=== PATIENT | female | born 1965 | race Caucasian/White ===

== ENCOUNTER → 2024-03-03 16:50 | Outpatient (REF) | payer BC, SELFPAY | LOC: WDC 16:50 | PROVIDERS: ATTENDING PHYSICIAN Family Medicine | DX: Z12.31 Encounter for screening mammogram for malignant neoplasm of breast (principal) | CPT/HCPCS: 77063; 77067 ==

== ENCOUNTER → 2024-03-16 07:02 | Outpatient (REF) | payer BC, SELFPAY | LOC: RAD 07:02 | PROVIDERS: ATTENDING PHYSICIAN Student in an Organized Health Care Education/Training Program; FAMILY PHYSICIAN Family Medicine | DX: M25.571 Pain in right ankle and joints of right foot (principal) | CPT/HCPCS: 73700 ==

== ENCOUNTER 2024-04-29 14:00 | Emergency (ER) | payer BC, SELFPAY ==
[2024-04-29] VITALS (8 sets, daily range): BP systolic 130–166; BP diastolic 94–112; BMI 27.3
--- NOTE | 2024-04-29 14:05 | ED.GENMED ---
History of Present Illness
General
Chief Complaint: Fainting Sensation
Time Seen by Provider: 04/29/24 14:05
History of Present Illness
History of Present Illness:
HPI: Patient came in by ambulance. Left her AA meeting (says she drank a little this am), got into her hot car, felt a marley in back center of neck to head, then nearly passed out and struggled to get to a parking lot of a restaurant. Currently she
is improved however she feels an abnormality to the left eye. She has not double vision until today.
EXAM:
GENERAL: Well appearing in no distress
HEENT: Moist oral mucosa
CARDIOVASCULAR: No murmurs, normal heart rate, regular rhythm, No chest wall tenderness
PULMONARY: No respiratory distress, breath sounds are clear and equal
ABDOMEN: Soft with no peritoneal signs, no tenderness
NEUROLOGIC: Excellent strength all extremities, no coordination deficits, left 6th nerve palsy, slightly impaired finger-nose on the right
PSYCHIATRIC: Appropriate mental status, normal insight and judgement
EXTREMITIES: Nontender, no edema, deformity at right ankle
SKIN: No rash, no lesions
TIME OF INITIAL ENCOUNTER: 2:30 PM
NUMBER AND COMPLEXITY OF PROBLEMS ADDRESSED AT THE ENCOUNTER
� Chronic conditions affecting care: High blood pressure, colitis, GERD, anemia
� Acute Exacerbation and/or Progression of Chronic Illness: This is an acute problem
� Differential Diagnosis includes: Heat exhaustion, alcohol intoxication unlikely, acute cranial nerve palsy
AMOUNT AND/OR COMPLEXITY OF DATA TO BE REVIEWED AND ANALYZED
� I performed an independent evaluation of and my interpretation is:
EKG: Sinus 92, left axis deviation
CT: I personally viewed CT imaging which shows subarachnoid hemorrhage
X-rays:
Laboratory Studies: Alcohol 11, potassium 3.1, bicarb 15, borderline troponin 0.03
Other:
� Review of other/old records: Potassium from 4 days ago was 5.0
� Clinical information was obtained by an independent historian: Spoke to friend at bedside
� Prescriptions/Medications Considered but not given:
� Further testing considered but not performed:
RISK OF COMPLICATIONS AND/OR MORBIDITY OR MORTALITY OF PATIENT MANAGEMENT
� Social determinants of health affecting care: Lives at home,
� Discussion with other providers: Discussed case with radiology as well as neurology, Dr. Ziegler imaging shows subarachnoid hemorrhage at the basilar cistern
� Escalation of care including admission/observation vs risk of discharge considered: Call placed to [place] for transfer at 4 PM. I spoke to neurosurgery at [facility] neuro ICU and will plan to fly her to get her
there as soon as possible. Neurosurgeon recommends against anything other than blood pressure control. I have given labetalol. BP remained elevated and she was switched to Cardene. At approximately 5 PM, the patient had a seizure with urinary
incontinence and became apneic and bradycardic. Decision was made to be emergently intubate the patient. This was done without difficulty. She was given Keppra. Repeat CT shows worsening bleed. As of 5:30 PM, she is taken by air to [facility]. I
updated [place] several times and spoke to the neurosurgeon.
Past History
Past History
ED Past Medical History: HTN and Other (Migraines, colitis); Negative IDDM
ED Past Surgical History:
Social History
Tobacco: Non-smoker
Alcohol: Daily (Glass of Wine)
Personal:
Living: with family
Employment: Employed
Family History
Family History: Other (Noncontributory)
Phy Exam
Physical Exam
Physical Exam:
See HPI
Course
Orders/Labs/Results
Orders:
Orders
04/29/24 14:09
ECG [Electrocardiogram (*1)] Urgent
Reason for Study: Vertigo / Dizzy
EKG- Treatment ONCE
04/29/24 14:11
Alcohol Urgent
Complete Blood Count/With Diff Urgent
Comprehensive Metabolic Panel Urgent
04/29/24 14:31
Add On- LAB Urgent
Tests Added?: alcohol
04/29/24 14:35
CT Head W/o Iv Contrast Urgent
Comment:
Reason For Exam: acute left 6th nerve palsy
04/29/24 14:46
CT Head & Neck Angio W/wo IV Urgent
Comment:
Reason For Exam: Neck pain, diploipa, ?vert dissection or basilar
04/29/24 14:49
0.9% Sodium Chloride 1000 ml [Nss] 1,000 ml IV BOLUS
04/29/24 14:55
Troponin I Urgent
04/29/24 16:06
Labetalol HCl [Trandate] 10 mg IV NOW STA
04/29/24 16:16
Potassium Chloride [KCl] 40 meq 0.9% Sodium Chloride 250 ml [Nss] 250 ml IV NOW
04/29/24 16:32
Nicardipine 40 mg/200 ml [Cardene] 40 mg in 200 ml .ROUTE .STK-MED
04/29/24 16:43
Lorazepam [Ativan] 2 mg .ROUTE .STK-MED ONE
04/29/24 16:45
Nicardipine 40 mg/200 ml [Cardene] 40 mg in 200 ml IV PER PROTOCOL
04/29/24 16:49
Propofol 1,000,000 Mcg/100 ml [Diprivan] 1,000,000 mcg in 100 ml .ROUTE .STK-MED
04/29/24 16:51
Levetiracetam Injectable [Keppra] 1,000 mg IV NOW STA
04/29/24 16:55
Propofol [Diprivan] 20 ml .ROUTE .STK-MED
04/29/24 16:57
CT Head W/o Iv Contrast Urgent
Comment:
Reason For Exam: unresponsive seizure; requested by [facility]
04/29/24 17:00
Propofol 1,000,000 Mcg/100 ml [Diprivan] 1,000,000 mcg in 100 ml IV PER PROTOCOL
04/29/24 17:06
Cr Chest Portable [CR Chest Portable - 1 View] Stat
Comment:
Reason For Exam: post intubation
Reason Study Needs to be Portable: Patient Unstable
04/29/24 17:19
Midazolam HCl [Versed] 5 mg .ROUTE .STK-MED ONE
04/29/24 17:23
Midazolam HCl [Versed] 5 mg IV NOW STA
Abnormal Lab Results
04/29/24
14:11
RBC 3.75 L 10^6/uL
(4.20-5.40)
Hgb 9.6 L g/dL
(12.0-16.0)
Hct 29.2 L %
(37.0-47.0)
MCV 77.9 L fL
(81.0-99.0)
MCH 25.6 L pg
(27.0-31.0)
MCHC 32.9 L g/dL
(33.0-37.0)
RDW 18.4 H %
(11.5-14.5)
Neutrophils % 41.0 L %
(42.2-75.2)
Potassium 3.1 L mmol/L
(3.5-5.1)
Carbon Dioxide 15 L mmol/L
(22-30)
BUN 6 L mg/dl
(7-17)
Creatinine 0.5 L mg/dL
(0.6-1.0)
Glucose 111 H mg/dl
(70-99)
04/29/24 14:11
04/29/24 14:11
Vital Signs
Initial and Last Documented VS:
Initial Vital Signs
Temp Pulse Resp BP Pulse Ox
98.3 F 93 20 144/98 96
04/29/24 14:03 04/29/24 14:03 04/29/24 14:03 04/29/24 14:03 04/29/24 14:03
Last Documented Vital Signs
Temp Pulse Resp BP Pulse Ox
98.3 F 92 16 130/94 100
04/29/24 14:03 04/29/24 17:10 04/29/24 17:10 04/29/24 17:10 04/29/24 17:10
Procedures
Moderate Sedation
ASA Risk Score: Class III
Chart and allergies reviewed: Yes
Consent for anesthesia obtained: No
Time out completed (validating right patient & procedure): Yes
History of difficult intubation: Not applicable
Airway free of obstruction: Yes
Patient has a gag reflex: Yes
Patient is able to open mouth: Yes
Patient has no dentures: Yes
Patient has no loose teeth: Yes
Medication administered by Provider during Moderate Sedation: Other
Intubations
Procedure completed by: Vt, Dr. Farley
Method of Intubation: glidescope
Tube size (cm): 7.5
Placement confirmed by: capnography
Breath sounds after intubation: equal
Intubation complications: no complications
Additional information:
The patient was given 20 mg of etomidate and 100 mg of succinylcholine for intubation.
*Critical Care Note
Total Time (30-74mins, 75-104mins- exclusive of procedures): 70min
comment:
The patient is found to have a nontraumatic subarachnoid hemorrhage. I emergently discussed case with neurosurgery at [facility] and they accepted their service to the neuro ICU. The patient's only finding on neurologic examination is a 6th nerve palsy
on the left side. She was closely monitored for any neurologic changes.
ED Attending Note
-
Portions of this chart may have been created with voice recognition software.� Occasional wrong word or��sound alike� substitutions may have occurred due to the inherent limitations of voice recognition software.
Discharge Plan
Departure
Patient Disposition: Acute Care Hospital
Date of Disposition: 04/29/24
Time of Disposition: 16:05
Patient with high blood pressure during this ER visit?: Yes
Discharge Problem:
Subarachnoid hemorrhage
Prescriptions:
No Action
Excedrin Migraine 1 TABLET tablet
2 tab PO DAILY
B Healthy
1 dose PO BID
meloxicam 15 mg Tablet
15 mg PO DAILY
omeprazole 40 mg Capsule,Delayed Release(Dr/Ec)
40 mg PO DAILY
royal jelly 500 mg Capsule
2,000 mg PO BID
Maximum Collagen Powder
1 dose PO DAILY
Pineapple Extract
1,500 mg PO BID
Corrigan Iron
1 dose PO DAILY
Vitamin C Power Pack
1,200 mg PO DAILY
mirtazapine 15 mg Tablet
15 mg PO DAILY
Referrals:
Yovanny Anderson MD [Family Provider] -
Hospital Transfer
Other hospital: [facility]
I certify that the patient requires transfer: Yes
Discussed case with accepting physician: Neurosurgeon at [facility] Dr. Campa (sp?)
Reason for transfer: higher level of care
Interventions
Interventions:
*Risk Screen - Suicide Last Done: 04/29/24 14:07
*General Assessment Last Done: 04/29/24 14:07
*Neglect/Abuse Screening Last Done: 04/29/24 14:07
ED- Cardiac Assessment Last Done: 04/29/24 14:03
ED- Neurological Assessment Last Done: 04/29/24 16:28
Discharge Date and Time
Print Language: MALAY
[2024-04-29 14:20] LABS: % Basophils 1.8 % (0-2); % Eosinophils 3.9 % (0-6); % Immature Granulocytes 0.2 % (0-0.5); % Lymphocytes 43.8 % (20.5-51.1); % Monocytes 9.3 % (1.7-9.3); Absolute Basophils 0.1 10^3/uL (0-0.2); Absolute Eosinophils 0.2 10^3/uL (0-0.7); Absolute Lymphocytes 2.7 10^3/uL (1.2-3.4); Absolute Monocytes 0.6 10^3/uL (0.1-0.6); Absolute Neutrophils 2.5 10^3/uL (1.4-6.5); Hematocrit 29.2 % (37.0-47.0); Hemoglobin 9.6 g/dL (12.0-16.0); Mean Corp Hgb Conc. 32.9 g/dL (33.0-37.0); Mean Corpuscular Hgb 25.6 pg (27.0-31.0); Mean Corpuscular Volume 77.9 fL (81.0-99.0); Nucleated Red Blood Cells % 0 %; Platelet Count 322 10^3/uL (130-400); Red Blood Cell Count 3.75 10^6/uL (4.20-5.40); Red Cell Dist. Width 18.4 % (11.5-14.5); White Blood Cell Count 6.1 10^3/uL (4.8-10.8)
--- NOTE | 2024-04-29 14:37 | CON.NEURO4 ---
Consultation - Neurology 4
-
CONSULTING PHYSICIAN: Tyson Monique
REFERRING PHYSICIAN: ER
DICTATED BY: Tyson Monique
DATE/TIME OF REQUEST: 04/29/24
DATE/TIME OF CONSULTATION: 04/29/24
Reason for Consultation: Double vision, neck pain
History of Present Illness:
Patient is a 59-year-old woman with a past medical history of untreated hypertension, alcohol abuse presenting the hospital with symptoms that started with midline neck pain, then dizziness and walking difficulties and now has developed binocular
diplopia. Patient denies any recent illnesses, no head or neck trauma recently and no unusual headaches. She had previously been on medication for high blood pressure but no longer required this. No recent unilateral paresthesia of the face arms
or limbs or unilateral weakness.
Symptoms started around 12 to 12:30 PM today after she had climbed in a very hot car she turned on the air conditioning. After this she noted significant midline neck pain in the back of the neck, she took an excedrin, she climbed to get out of her
car but found that her balance was significantly impaired and actually had a fall producing an abrasion on her nose, at some point in this had a feeling of pre-syncope. She had help from bystanders and was brought to the ER. She notes development
of binocular diplopia here in the ER. Also feels like there is some red blurry lines in her left eye and not in the right eye.
Currently denies headache but has mild neck pain. Feels some mild redness of vision in the left eye alone.
Past Medical History: Hypertension, migraines, colitis
Surgical History: , rhinoplasty, skin graft
Family History: Non-contributory
Social History: Lives at home and employed, no tobacco use, some indications of alcohol abuse with AA meeting attendance this morning, denies any recreational drugs, .
Allergies: Azithromycin
Review of Symptoms:
Patient denies any fever, headache, chest pain, shortness of breath, GI or symptoms.
Physical Exam:
Well-appearing middle-aged woman, blood in nares with small nasal abrasion, eyes are clear with no ptosis, conjunctival normal, palpation of cervical spine no abnormalities, heart rate regular, breathing unlabored, abdomen soft nontender no lower
extremity edema seen
Neurologic Examination:
The patient is wide awake, alert and oriented x 3. She is able to follow commands and answer questions appropriately. Conversation appropriate. There is no aphasia or dysarthria. On cranial nerve assessment, pupils are 3 mm bilateral, round and
reactive to light and accommodation. Visual rivas are full. Extraocular movements shows left eye significant limitation of left eye abduction suggestive of CN 6th palsy. All other movements of left eye are normal. Right eye normal movements. No
nystagmus seen. Facial sensations are intact and bilaterally symmetrical, there is no facial asymmetry. Hearing is intact bilaterally to normal conversation volume. Tongue palate and uvula are midline. Sternocleidomastoid strengths are full
bilaterally. Motor strengths are 5/5 bilateral upper and lower extremities on medical research [place] scale. There is no drift or involuntary movement noted. Deep tendon reflexes are 2+ bilateral upper and lower extremities and Babinski is absent
bilaterally. Intact to light touch in face bilaterally. There was no extinction noted on double simultaneous stimulation. No ataxia on finger to nose testing bilaterally or with hands outstretched.
Neuro Imaging:
CT head non contrast with hyperdensity in pontine cisterns consistent with subarachnoid hemorrhage
CTA head and neck pending
Impressions
Subarachnoid hemorrhage in the posterior circulation, brainstem area leading to left cranial nerve palsy. 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
Recommendations:
1. Urgent transfer to [facility] for neurosurgical and neuro ICU care. Will likely require conventional angiogram, possibly endovascular intervention.
2. Hold all antithrombotics, antiplatelet and DVT prophylaxis
3. Maintain systolic blood pressure less than 160 would start Cardene infusion to achieve this goal
4. Not recommending Levetiracetam seizure prophylaxis given brainstem area hemorrhage not likely to cause seizure
5. Hyperosmolar therapies not necessary at this time
6. Avoid NSAID's
7. ICU level of care
Patient with subarachnoid hemorrhage in the brainstem region leading to symptoms representing acute neurological and neurosurgical emergency at risk for deterioration and will require ICU level of care
Critical care time = 50 minutes
Discussed patient care with: Patient, ED physician
[2024-04-29 14:49] LABS: ALT (SGPT) 12 U/L (0-35); AST (SGOT) 27 U/L (14-36); Albumin 3.9 g/dl (3.5-5.0); Alkaline Phosphatase 74 U/L (38-126); Blood Urea Nitrogen 6 mg/dl (7-17); Calcium 9.2 mg/dl (8.4-10.2); Carbon Dioxide 15 mmol/L (22-30); Chloride 106 mmol/L (98-107); Estimated Creatinine Clearance 97 ml/min; Glucose 111 mg/dl (70-99); Potassium 3.1 mmol/L (3.5-5.1); Sodium 135 mmol/L (135-145); Total Bilirubin 0.4 mg/dl (0.2-1.3); Total Protein 6.6 g/dl (6.3-8.2); eGFR > 60.00
[2024-04-29] MEDS: NSS 1000 IV (14:53)
[2024-04-29 15:01] LABS: Alcohol 11 mg/dl
[2024-04-29 15:28] LABS: Troponin I 0.034 ng/ml
--- NOTE | 2024-04-29 16:03 | EDRN ---
SA[facility] per Pharmacy aware of trandate order.
[2024-04-29] MEDS: TRANDATE 10 MG IV (16:12)
--- NOTE | 2024-04-29 16:47 | EDRN ---
Pt c/o severe pain in back of neck before witnessed seizure. Dr Farley to bedside. Pt's friend to waiting area. Manual chin lift for airway, nonrtebreather on high flow. Set up for RSI. Code cart to bedside. Pulseox 100%. Pt became more
responsive. Nodded yes to intubation.
16:49 RSI: 20 etomidate and 100 succinylcholine. 7.5 ET, 22cm at lip. BVM with color change.
--- NOTE | 2024-04-29 16:51 | EDRN ---
Addendum entered by Randy Armenta RN 04/29/24 16:56:
1000 mg keppra.
Original Note:
500 mg keppra IV. Equal chest rise and fall post intubation.
[2024-04-29] MEDS: DIPRIVAN 100 IV (16:54)
[2024-04-29] MEDS: KEPPRA 1000 MG IV (16:55)
--- NOTE | 2024-04-29 17:11 | EDRN ---
16:50 and 17:[address] Farley.
K+ Tommy (K+3.1) not started d/t critical event.
--- NOTE | 2024-04-29 17:21 | EDRN ---
Addendum entered by Randy Armenta RN 04/29/24 18:14:
2 mg ativan IV was given by nursing staff per verbal order Dr Farley.
Original Note:
Returned from CT wake and agitated. Physical restraints for tube protection. 5 mg versed IV. Propofol 40mcg/kg/min plus 50 mg bolus. Flight crew to bedside.
--- NOTE | 2024-04-29 18:12 | EDRN ---
17:45 pt's belonings given to her friend upon friend's request. Friend reports that she texted pt's spouse regarding hospitalization, but did not hear back. Spouse's info was prvided enriqueta DUMONT in report.
== END 2024-04-29 17:40 | disposition short-term general hospital (02) ==
LOC: EMR 14:00
PROVIDERS: EMERGENCY PHYSICIAN Emergency Medicine; FAMILY PHYSICIAN Family Medicine; OTHER PHYSICIAN Student in an Organized Health Care Education/Training Program
DX: S06.6X9A Traumatic subarachnoid hemorrhage with loss of consciousness of unspecified duration, initial encounter (principal); S00.31XA Abrasion of nose, initial encounter; W19.XXXA Unspecified fall, initial encounter; I10 Essential (primary) hypertension
CPT/HCPCS: 99291; 31500; 96374; 96375; 96361; 70450; 70496; 70498; 71045; 80053; 82077; 84484; 85025; 93005; 94002; Q9967